=== PATIENT | female | born 1995 | race Caucasian/White ===

== ENCOUNTER 2022-01-08 13:16 | Outpatient (CLI) | payer OTHER, SELFPAY ==
--- OUTSIDE RECORDS SUMMARY | 2022-01-08 13:19 | XMS_ITS | Clinical Summary ---
:1995 Author Organization [employer] [facility] [place] [address] Care Team Providers Name Role Phone Jennifer Rangel Primary Care Provider [phone] Allergies Active Allergy Reactions Severity Noted Date Comments Amoxicillin Rash, Other - 01/31/2021 Asthma attack Describe In Comment Field House Dust Itching Low 03/30/2018 Grass Pollen Hives Low 03/30/2018 Prazosin Dizziness, Syncope 08/23/2019 Unlisted Allergen Hives 06/21/2019 John odonnell-pt (Include Detail In reports w hen she took Comments) the med she dev eloped a extreme cough ing episode and dev eloped hives Medications Medication Sig Dispensed Refills Start End Status Date Date polyethylene glycol Take 17 g by 10 Packet 0 Active (MIRALAX) 17 g mouth once 0 powder for daily. solutionIndications : Constipation, unspecified constipation type NebulizerIndication Nebulizer, 1 Device 0 Active s: Exacerbation of disposable neb 1 asthma, unspecified kit x 4, asthma severity, reuseable neb unspecified whether kit x 1, mask x persistent 1, filters x 1. Frequency of use: daily; Medication: albuterol Length of need: 99 months albuterol Inhale 3 mL (2.5 3 box 3 Act timur (PROVENTIL) 0.083 % mg) via a 1 neb nebulizer every solutionIndications 4 hours if : Exacerbation of needed. asthma, unspecified asthma severity, unspecified whether persistent Ventolin HFA 90 INHALE 2 PUFFS 1 Each 2 Active mcg/actuation BY MOUTH FOUR 1 inhalerIndications: TIMES A DAY Cough fluticasone Inhale 1 Puff by 60 Each 0 A ctive propion-salmeteroL mouth 2 times 1 (Advair Diskus) daily. 500-50 mcg/Dose diskus inhalerIndications: Severe persistent reactive airway disease with acute exacerbation ciprofloxacin-dexAM Place 4 Drops 7.5 mL 0 Active ETHasone (CIPRODEX) into both ears 2 2 otic times daily. suspensionIndicatio ns: Otitis externa of left ear, unspecified chronicity, unspecified type Fluocinolone PLACE 2 DROPS 0 Act timur Acetonide 0.01 % INTO AFFECTED 1 oil No EAR(S) TWO TIMES A DAY mometasone USE 2 SPRAYS IN 0 Act timur (NASONEX) (50 mcg BOTH NOSTRILS 2 each actuation) ONCE DAILY. nasal spray triamcinolone 0.5% Apply topically 60 g 0 Active (ARISTOCORT) 0.5 % to affected 2 creamIndications: area(s) 2 times Dermatitis daily. gabapentin TAKE 1 TABLET BY 0 Ac tive (NEURONTIN) 600 mg MOUTH AT 9PM 2 tablet cholecalciferol Take 1 Capsule 0 Active (VITAMIN D3) 2,000 (2,000 units) by 2 unit capsule mouth once daily. fluocinolone 0.01 % Place 5 Drops 20 mL 1 Active 0.01 % otic into both ears 2 2 solutionIndications times daily. : Otalgia of both ears, Chronic diffuse otitis externa of both ears, Chronic TMJ pain semaglutide Inject 2.4 mg 3 mL 5 Acti ve (Wegovy) 2.4 subcutaneous 2 mg/0.75 mL once weekly. penIndications: Obesity, Class II, BMI 35-39.9 fluticasone INHALE 1 PUFF BY 1 Each 5 A ctive propion-salmeteroL MOUTH TWO TIMES 2 (ADVAIR) 250-50 A DAY mcg/Dose diskus inhalerIndications: Cough tiZANidine Take 1 Tablet (4 30 Tablet 0 Ac tive (ZANAFLEX) 4 mg mg) by mouth 2 tabletIndications: every 6 hours if Tendinitis of left needed for shoulder, Muscle Spasm. Impingement syndrome of left shoulder amitriptyline Take 1 Tablet 90 Tablet 0 Ac tive (ELAVIL) 75 mg (75 mg) by mouth 2 tabletIndications: at bedtime. Depression, major, single episode, severe (HC), Insomnia, idiopathic, Other mixed anxiety disorders ARIPiprazole Take 2 Tablets 180 Tablet 0 A ctive (ABILIFY) 2 mg (4 mg) by mouth 2 tabletIndications: at bedtime. Depression, major, single episode, severe (HC), Other mixed anxiety disorders ondansetron (ZOFRAN Place 2 Tablets 30 Tablet 0 Active ODT) 4 mg (8 mg) on the 2 disintegrating tongue every 8 tabletIndications: hours if needed Enteritis for Nausea/Vomiting. dicyclomine Take 1 Capsule 30 Capsule 0 Ac tive (BENTYL) 10 mg (10 mg) by mouth 2 capsuleIndications: every 6 hours if Enteritis needed (abdominal cramping.). gabapentin Take 1 pill by 90 Capsule 0 Act timur (NEURONTIN) 300 mg mouth at 5PM and 2 capsuleIndications: 2 pills by mouth Restless legs at 9PM syndrome (RLS) promethazine Take 1 Tablet 20 Tablet 0 Act timur (PHENERGAN) 25 mg (25 mg) by mouth 2 tabletIndications: every 6 hours if Abdominal pain of needed for unknown etiology Nausea/Vomiting. promethazine Take 1 Tablet 2 Tablet 0 Act timur (PHENERGAN) 25 mg (25 mg) by mouth 2 tabletIndications: every 6 hours if Abdominal pain of needed for unknown etiology, Nausea/Vomiting Cysts of both for up to 2 ovaries doses. traMADoL (ULTRAM) Take 1 Tablet 15 Tablet 0 Active 50 mg (50 mg) by mouth 2 tabletIndications: every 6 hours if Abdominal pain of needed for Pain. unknown etiology, Cysts of both ovaries montelukast Take 1 Tablet 90 Tablet 3 Acti ve (SINGULAIR) 10 mg (10 mg) by mouth 2 tabletIndications: once daily. Allergic rhinitis, unspecified seasonality, unspecified trigger dupilumab (Dupixent Inject 200 mg 2.28 mL 0 Active Pen) 200 mg/1.14 mL subcutaneous 2 pnijIndications: every 2 weeks. Asthma, unspecified asthma severity, unspecified whether complicated, unspecified whether persistent, Chronic rhinosinusitis budesonide-formoter Inhale 2 Puffs 10.2 g 11 12/26 Discontinued oL (Symbicort) by mouth 2 times 2 022 (*Patient 160-4.5 daily. states no mcg/actuation longer (160-4.5 mcg each ta margarita/Not on actuation) sending inhalerIndications: facility list) Asthma, unspecified asthma severity, unspecified whether complicated, unspecified whether persistent dupilumab (Dupixent Inject 200 mg 2.28 mL 5 Discontinued Pen) 200 mg/1.14 mL subcutaneous 2 022 (Reorder pnijIndications: every 2 weeks. (E-cancel not Asthma, unspecified sent)) asthma severity, unspecified whether complicated, unspecified whether persistent, Chronic rhinosinusitis ondansetron (ZOFRAN PLACE 1 TABLET 20 Tablet 0 12/26 Discontinued ODT) 4 mg (4 MG) ON THE 2 022 (Dupli ana disintegrating TONGUE EVERY 8 therapy tabletIndications: HOURS IF NEEDED (E-cancel not Nausea FOR sent)) NAUSEA/VOMITING. metoclopramide HCl Take 1 Tablet 30 Tablet 0 Discontinued (REGLAN) 10 mg (10 mg) by mouth 2 022 (*Med tabletIndications: every 6 hours if complete/Regime Enteritis needed for n Nausea/Vomiting. com plete/Level of care ch cyndy) montelukast Take 1 Tablet 30 Tablet 0 Disc ontinued (SINGULAIR) 10 mg (10 mg) by mouth 2 022 (Reorder tabletIndications: once daily. (E-cancel not Allergic rhinitis, s ent)) unspecified seasonality, unspecified trigger rx tramadol Take 1 Tablet 4 Tablet 0 Disc ontinued (ULTRAM) 50 mg (50 mg) by mouth 2 022 (Duplicate tablet (ED DC every 6 hours if therapy MED)Indications: needed for Pain. (E-cancel not Abdominal pain of se nt)) unknown etiology, Cysts of both ovaries Hospital, Clinic, or Other Ordered Dose Route Frequency Start Date End Date Status Facility Administered Medication etonogestrel subdermal 1 Each Sdrm Q 3 YEARS 02/23/2021 Active implant (NEXPLANON) 1 EachIndications: Nexplanon insertion Active Problems Problem Noted Date Pap smear for cervical cancer screening 07/13/2021 Overview: 07/2021 NIL. Plan: Pap/HPV due 07/2024 Reactive airway disease with acute exacerbation 2021 Nightmares associated with chronic post-traumatic stre ss disorder 11/03/2018 Posttraumatic stress disorder 11/03/2018 Major depressive disorder, recurrent, moderate 018 Dysmenorrhea 01/21/2012 Irregular periods 01/21/2012 Attention deficit disorder without mention of hyperact ivity 05/09/2006 Resolved Problems Problem Noted Date Resolved Date Depression, major, single episode, severe 04/18/2021 04/19/2021 KIRK (generalized anxiety disorder) 03/30/201804/16 Pain in joint, lower leg 12/19/2006 01/21/2012 Encounters Date Type Specialty Care Team Description 12/26/2021 Office Visit Jennifer Rangel ER Follow u p (Post Er visit / RAJENDRA Wilburn ovary cysts) 12/26/2021 Travel 12/20/2021 Emergency Torgersen, Beba Abdomina l pain of unknown etiology (Primary Dx); Falguni, HOTEL CUSTODIAN Cysts of both o varies 12/20/2021 Travel 12/20/2021 Nurse Triage Jennifer Rangel Abdominal P RAJENDRA Segovia 12/20/2021 Telephone Jennifer Rangel Questions ( continuing pain RAJENDRA Wilburn from gastroenet eritis) 12/19/2021 Telephone Joseph Toledo DME Sup ply ([facility] singletary) 12/18/2021 Telephone Mandeep Rand DO Prior Authorization (dupilumab (Dup ixent Pen) 200 mg/1.14 mL pnij APPROVED 11/19/2021-03/0 09/2022) 12/18/2021 Telephone Tre, Joseph Elis French MD 12/13/2021 Office Visit Joseph Toledo, Musculo skeletal Problem (Consult left f oot pain, discuss Tenex p rocedure, per Dr. Mckee) 12/13/2021 Travel 12/04/2021 Refill Darien Rivas MD Refill Reque st (Gabapentin 300 mg, Gabapen tin 600mg, Montelukast sod 10mg) 12/04/2021 Refill Jennifer Rangel Refill Requ est (Trazodone) RAJENDRA Wilburn 12/03/2021 Emergency RanDustin MD Enteritis (Primary Dx) 12/03/2021 Travel 12/03/2021 Nurse Triage Jennifer Rangel Abdominal P ain (Severe with RAJENDRA Wilburn nausea and diar enrique) 11/23/2021 Refill Jennifer Rangel Refill Requ est (Ondansetron) RAJENDRA Wilburn 11/23/2021 Telephone Caro Lomax Prior Auth orization MD Akila (ARIPiprazole ( ABILIFY) 2 mg tablet APPROVED 10/24/21-12/23/21 ) 11/21/2021 Office Visit Kye Mckee, Follow Up (Left heel pain) DPM 11/21/2021 Telemedicine Caro Lomax Telehealth ; Follow Up MD Akila 11/21/2021 Travel 11/13/2021 Telephone Kye Mckee Questio ns (next steps); DPM Return Call ([facility] Ext [phone]) 11/13/2021 Telephone Jennifer Rangel Error-pleas e RAJENDRA Knight 11/09/2021 Office Visit Jennifer Rangel Shoulder Rajendra in/problem (RAJENDRA Davila shoulder pain x 1 week, no known injury, t hinks she must have moved wron g) 11/09/2021 Travel 10/22/2021 Office Visit Mandeep Rand, DO Follow Up (asthma ) 10/22/2021 Office Visit Ericka Lin Back Pain RAJENDRA Augustine 10/22/2021 Travel 10/19/2021 Telephone Jennifer Rangel Prior Autho rization RAJENDRA Wilburn (semaglutide (W egovy) 2.4 mg/0.75 mL pen( APPROVED through 022) 10/10/2021 Office Visit Caro Lomax Medication Management; Follow MD Akila Up 10/10/2021 Travel 10/08/2021 Refill Jennifer Rangel Refill Requ est (Lorazepam) RAJENDRA Wilburn from Last 3 Months Immunizations Name Administration Dates Next Due COVID-19 vaccine ([employer] 06/16/2020 30mcg/0.3mL) PF, MDV DTP 03/16/1996, 09/12/1995, 1994, 1994 DTaP 11/12/1999 HIB PRP-OMP (PedvaxHIB) 03/16/1996, 09/12/1995, 1994, 1994 Hepatitis A (Peds) 01/15/2011, 12/05/2006 06/07/2007 Hepatitis B (Peds) 02/24/1995, 1994, 1994 Human Papilloma Virus Vaccine 02/24/2013, 01/21/2012, 2010 Inactivated Polio Vaccine 11/12/1999 Influenza Virus, Unspecified 01/17/2020, 01/04/2020, 018 Influenza, IIV3 (Age >=3 years) 02/19/2017, 02/24/2013 Influenza, IIV4 12/19/2020, 12/28/2019 Influenza,LAIV4 Live Intranasal 01/21/2012, 01/15/2011 (Flumist) MMR 11/12/1999, 09/12/1995 Meningococcal Vaccine (Menactra) 12/05/2006 Meningococcal Vaccine (Menveo) 02/24/2013, 01/21/2012 Oral Polio Vaccine 09/12/1995, 1994, 1994 Pneumococcal Poly,23-Valent 01/31/2021 (Pneumovax) Td, Preservative Free (age >= 7 05/21/2017 Years) Tdap 12/05/2006 Family History Medical History Relation Name Comments Diabetes Father Hyperlipidemia Maternal Grandfather Hypertension Maternal Grandfather Cancer-breast Maternal Grandmother Hyperlipidemia Maternal Grandmother Hypertension Maternal Grandmother Asthma Mother Diabetes Other maternal great u ncle Diabetes Paternal Grandfather Heart Disease No Family History Relation Name Status Comments Father Maternal Grandfather Maternal Grandmother Mother Other Paternal Grandfather Social History Tobacco Use Types Packs/Day Years Used Date Never Smoker Smokeless Tobacco: Never Used Tobacco Cessation: Counseling Given: Yes Alcohol Use Standard Drinks/Week Comments Not Currently 0 (1 standard drink = 0.6 oz pure alcoho l) Alcohol Habits Answer Date Recorded How often do you have a drink containing alcohol? Monthly or less 07/30/2018 How many drinks containing alcohol do you have on a Not aske d typical day when you are drinking? How often do you have six or more drinks on one Not asked occasion? Comment: Not asked Sex Assigned at Date Recorded Not on file COVID-19 Exposure Response Date Recorded In the last 10 days, have you been in contact with No / Unsu re 12/26/2021 7:36 AM CDT someone who was confirmed or suspected to have Coronavirus/COVID-19? Obstetrics History Para Term AB IAB SAB Ectopic Multiple Living Live Births 0 0 0 0 0 0 0 0 0 0 0 Last Filed Vital Signs Vital Sign Reading Time Taken Comments Blood Pressure 94/66 12/26/2021 7:42 AM CDT Pulse 82 12/26/2021 7:42 AM CDT Temperature 36.7 ??C (98.1 ??F) 12/20/2021 6:33 PM CDT Respiratory Rate 17 12/20/2021 6:33 PM CDT Oxygen Saturation 99% 12/20/2021 6:33 PM CDT Inhaled Oxygen Concentration - - Weight 98.9 kg (218 lb) 12/26/2021 7:42 AM CDT Height 160 cm (5' 3) 12/26/2021 7:42 AM CDT Body Mass Index 38.62 12/26/2021 7:42 AM CDT Plan of Treatment Upcoming Encounters Date Type Specialty Care Team Description 01/08/2022 Procedure Only Joseph Toledo MD Arrived [address] [phone] (Wo rk) Health Maintenance Due Date Last Done Comments Hepatitis C screening for age 0408/02/2012 18-79 Influenza for age 9-49 12/13/2021 12/19/2020, 01/17/2020, 01/04/2020, Additional history exists Pneumococcal series for age 19-64 01/31/2022 01/31/2021 (2 - PCV) Depression screening for age 12+ 11/23/2022 11/23/2021, 01/2022, 11/21/2021, Additional history exists BMI (ht and wt on same day) for 12/26/2022 12/26/2021, 10/12, age 18+ 09/26/2021, Additional history exists Pap test for age 21-65 07/25/2024 07/25/2021 Tetanus booster 05/21/2027 05/21/2017, 12/05/2006 Tdap Completed 12/05/2006 COVID-19 vaccine series Completed 01/03/2022, 01/16/2021, 07/07/2020, Additional history exists Procedures Procedure Name Priority Date/Time Associated Diagnosis Comme nts US PELVIS COMPLETE TA STAT 12/20/2021 8:53 Res ults for this AND TV PM CDT procedure are i n the results section. URINE CULTURE JH 12/20/2021 8:43 Results for this PM CDT procedure are i n the results section. URINALYSIS STAT 12/20/2021 8:43 Results for this MICROSCOPIC PM CDT procedure are i n the results section. UA W/ SEDIMENT EXAM STAT 12/20/2021 8:43 Resul ts for this REFLEXED PER CRITERIA PM CDT proced ure are in the results section. CBC WITH AUTO STAT 12/20/2021 6:49 Results for this DIFFERENTIAL PM CDT procedure are i n the results section. ,SERUM STAT 12/20/2021 6:49 Results f or this PM CDT procedure are i n the results section. C-REACTIVE PROTEIN STAT 12/20/2021 6:49 Result s for this PM CDT procedure are i n the results section. COMP METABOLIC PANEL STAT 12/20/2021 6:49 Resu lts for this PM CDT procedure are i n the results section. CBC WITH AUTO STAT 12/20/2021 6:49 Results for this DIFFERENTIAL PM CDT procedure are i n the results section. CT ABDOMEN PELVIS W STAT 12/03/2021 11:32 Resu lts for this AM CDT procedure are i n the results section. URINE STAT 12/03/2021 10:50 Results for this AM CDT procedure are i n the results section. CBC WITH AUTO STAT 12/03/2021 10:26 Results fo r this DIFFERENTIAL AM CDT procedure are i n the results section. LIPASE STAT 12/03/2021 10:26 Results for this AM CDT procedure are i n the results section. COMP METABOLIC PANEL STAT 12/03/2021 10:26 Res ults for this AM CDT procedure are i n the results section. CBC WITH AUTO STAT 12/03/2021 10:26 Results fo r this DIFFERENTIAL AM CDT procedure are i n the results section. WA SPMTRY W/VC Routine 10/22/2021 12:00 Vocal cord EXPIRATORY BARBARA W/WO AM CDT dysfunction MXML VOL VNTJ WA NITRIC OXIDE Routine 10/22/2021 12:00 Vocal cord GAS AM CDT dysfunction DETERMINATION LIPID PANEL W REFLEX Routine 10/10/2021 8:23 [facility] current use Results for this MEASURED LDL AM CDT of antipsychotic procedure a re in medication the results Panic disorder with section. agoraphobia from Last 3 Months Results US PELVIS COMPLETE TA AND TV (12/20/2021 8:53 PM CDT) Anatomical Region Laterality Modality Pelvis Ultrasound Specimen (Source) Anatomical Collection Method Collection Time Re ceived Time Location / / Volume Laterality 12/20/2021 9:22 PM CDT Impressions 12/20/2021 9:22 PM CDT 1. No ovarian torsion or mass. 2.5 cm dominant follicle versus cyst within the left ovary. 2. Normal endometrial stripe thickness o f 5 mm. 3. Trace pelvic free fluid, likely physi ologic. Dictated by Tod Barlow MD @ 12/21/19 9:22:21 PM (Electronically Signed) Narrative 12/20/2021 9:22 PM CDT For Patients: ??As a result of the 21st Century Cures Act, medical imaging exams and procedure report s are released immediately into your [facility] medical record. ??You may view this report before your referring provider. ??If you have questions, please contact your health care provider. HISTORY: Abdominal pain. TECHNIQUE: Transabdominal and transvaginal pelvic u ltrasound. COMPARISON: CT 12/03/2021. Ultrasound 04/13/2020. FINDINGS: Uterus measures 6.8 x 4.4 x 2.9 cm in si ze. Endometrial stripe thickness is 5 mm which is within normal limits. There appears to be a calcification along the right aspect of the uterus of questionable significance as an isolated finding. - Right ovary measures 3.6 x 2.6 x 1.2 cm in size. There are small follicles within the right ovary and also a probable single calcification within the right ovary. Blood flow is detected within the right ovary without findings of torsion. - Left ovary measures 3.5 x 3.5 x 2.7 cm i n size. There are small follicles within the left ovary. 2.5 cm dominant follicle versus cyst within the left ovary. Blood flow detected within the left ovary without findings of torsion. - Trace amount of pelvic free fluid. Procedure Note Tod Barlow MD - 2 For Patients: As a result of the ntury Cures Act, medical imaging exams and procedure reports are released immediately into your electronic medical record. You may view this report before your referring provider. If you have questions, please contact [facility]. HISTORY: Abdominal pain. TECHNIQUE: Transabdominal and transvaginal pelvic u ltrasound. COMPARISON: CT 12/03/2021. Ultrasound 04/13/2020. FINDINGS: Uterus measures 6.8 x 4.4 x 2.9 cm in si ze. Endometrial stripe thickness is 5 mm which is within normal limits. There appears to be a calcification along the right aspect of the uterus of questionable significance as an isolated finding. - Right ovary measures 3.6 x 2.6 x 1.2 cm in size. There are small follicles within the right ovary and also a probable single calcification within the right ovary. Blood flow is detected within the right ovary without findings of torsion. - Left ovary measures 3.5 x 3.5 x 2.7 cm i n size. There are small follicles within the left ovary. 2.5 cm dominant follicle versus cyst within the left ovary. Blood flow detected within the left ovary without findings of torsion. - Trace amount of pelvic free fluid. IMPRESSION: 1. No ovarian torsion or mass. 2.5 cm do minant follicle versus cyst within the left ovary. 2. Normal endometrial stripe thickness o f 5 mm. 3. Trace pelvic free fluid, likely physi ologic. Dictated by Tod Barlow MD @ 12/21/19 9:22:21 PM (Electronically Signed) Beba Carrillo NP US (ABNORMAL) URINALYSIS MICROSCOPIC (12/20/2021 8:43 PM CDT) [facility] Method Time Signature RBC 0-2 0-2, None 12/20/2021 [place] Seen /HPF 8:55 PM CDT [facility] WBC 6-10 (A) 0-2, 3-5, 12/20/2021 [place] None Seen 8:55 PM CDT [facility] /HPF LABORATORY BACTERIA Moderate (A) None 12/20/2021 [place] Seen, 8:55 PM CDT [facility] Rare, Few LABORATORY Bacteria/ HPF EPITHELIAL Many (A) None 12/20/2021 [place] CELLS Seen, Few 8:55 PM CDT [facility]ENTER Epi/HPF LABORATORY Specimen Anatomical Collection Method Collection Time Receive d Time (Source) Location / / Volume Laterality Urine URINE SPECIMEN / Non-Blood / 12/20/2021 8:43 PM 12/20 8:47 Unknown Unknown CDT PM CDT Beba Carrillo NP URINE Performing Organization Address City/State/ZIP Code Phon e Number [facility] [address] [place] [address] URINE CULTURE (12/20/2021 8:43 PM CDT) [facility] Method Time Signature CULTURE <10,000 CFU/mL 12/21/2021 [employer] multiple 7:45 PM CDT LABORATORY-[facility] LABORATORY Specimen Anatomical Collection Method Collection Time Receive d Time (Source) Location / / Volume Laterality Urine URINE SPECIMEN / Non-Blood / 12/20/2021 8:43 PM 12/20 8:47 Unknown Unknown CDT PM CDT Beba Carrillo NP MICROBIOLOGY Performing Organization Address City/State/ZIP Code Phon e Number [employer] [address] [place] [address] LABORATORY-CENTRAL 2000 LABORATORY (ABNORMAL) UA W/ SEDIMENT EXAM REFLEXED PER CRITERIA (12/20/2021 8:43 PM CDT) [facility] Method Time Signature COLOR Yellow Yellow Color 12/20/2021 [place] 8:56 PM [facility] LABORATORY CLARITY Clear Clear 12/20/2021 [facility] Clarity 8:56 PM [facility] LABORATORY SPECIFIC <=1.005 (A) 1.010, 12/20/2021 [facility] GRAVITY,URINE 1.015, 8:56 PM T MEDICAL 1.020, 1.025 CENTER LABORATORY PH,URINE 6.5 6.0, 7.0, 12/20/2021 [place] 8.0, 5.5, 8:56 PM [facility] MEDICAL 6.5, 7.5, CENTER 8.5 LABORATORY UROBILINOGEN, Normal Normal EU/dl 12/20/2021 [facility] 8:56 PM [facility] LABORATORY PROTEIN, Negative Negative 12/20/2021 [facility] UR[facility] mg/dL 8:56 PM [facility] LABORATORY GLUCOSE, Negative Negative 12/20/2021 [place] URINE mg/dL 8:56 PM [facility] LABORATORY KETONES,URINE Trace (A) Negative 12/20/2021 [facility] mg/dL 8:56 PM [facility] LABORATORY BILIRUBIN,URI Negative Negative 12/20/2021 [facility] 8:56 PM [facility] LABORATORY OCCULT Negative Negative 12/20/2021 [facility] BLOOD,URINE 8:56 PM [facility] LABORATORY NITRITE Negative Negative [facility]/20[facility] LABORATORY LEUKOCYTE Trace (A) Negative 12/20/2021 [place] ESTERASE 8:56 PM [facility] LABORATORY Specimen Anatomical Collection Method Collection Time Receive d Time (Source) Location / / Volume Laterality Urine URINE SPECIMEN / Non-Blood / 12/20/2021 8:43 PM 12/20 8:47 Unknown Unknown CDT PM CDT Beba Carrillo NP URINE Performing Organization Address City/State/ZIP Code Phon e Number [facility] [address] [facility] [place] [address] CBC WITH AUTO DIFFERENTIAL (12/20/2021 6:49 PM CDT)Only the most recent of2 resultswithin the time period is included. P athologist Signature WHITE BLOOD 8.5 4.5 - 11.0 12/20/2021 [place] COUNT thou/cu mm 6:56 PM [facility] RED BLOOD COUNT 4.48 4.00 - 12/20/2021 [place] 5.20 6:56 PM [facility] mil/cu mm LABORATORY HEMOGLOBIN 14.5 12.0 - 12/20/2021 [place] 16.0 g/dL 6:56 PM [facility] HEMATOCRIT 43.7 33.0 - 12/20/2021 [place] 51.0 % 6:56 PM [facility] MCV 98 80 - 100 12/20/2021 [place] fL 6:56 PM [facility] MCH 32.4 26.0 - 12/20/2021 [place] 34.0 pg 6:56 PM [facility] MCHC 33.2 32.0 - 12/20/2021 [place] 36.0 g/dL 6:56 PM [facility] RDW 11.6 11.5 - 12/20/2021 [place] 15.5 % 6:56 PM [facility] PLATELET COUNT 346 140 - 440 12/20/2021 [place] thou/cu mm 6:56 PM [facility] MPV 9.4 6.5 - 11.0 12/20/2021 [place] fL 6:56 PM [facility] % NEUT 76.4 % 12/20/2021 [place] 6:56 PM [facility] [facility] % LYMPH 12.3 % 12/20/2021 [place] 6:56 PM [facility] % MONO 7.9 % 12/20/2021 [place] 6:56 PM [facility] % EOS 3.0 % 12/20/2021 [place] 6:56 PM [facility] % BASO 0.4 % 12/20/2021 [place] 6:56 PM [facility] ABSOLUTE 6.5 1.7 - 7.0 12/20/2021 [place] NEUTROPHILS thou/cu mm 6:56 PM [facility] ABSOLUTE 1.0 0.9 - 2.9 12/20/2021 [place] LYMPHOCYTES thou/cu mm 6:56 PM [facility] ABSOLUTE 0.7 <0.9 12/20/2021 [place] MONOCYTES thou/cu mm 6:56 PM [facility] ABSOLUTE 0.3 <0.5 12/20/2021 [place] EOSINOPHILS thou/cu mm 6:56 PM T [facility] ABSOLUTE 0.0 <0.3 12/20/2021 [place] BASOPHILS thou/cu mm 6:56 PM [facility] Specimen Anatomical Collection Method / Collection Time Recei marco Time (Source) Location / Volume Laterality Blood BLOOD SPECIMEN / Venipuncture / 12/20/2021 6:49 2021 6:54 Unknown Unknown PM CDT PM CDT Beba Carrillo NP HEMATOLOGY Performing Organization Address City/[facility]/ZIP [facility] [place] Phon e Number [facility] [address] [place] [address] ,SERUM (12/20/2021 6:49 PM CDT) Analysis Performed At [facility] ,SERU Negative Negative [facility] Specimen Anatomical Collection Method / Collection Time Recei marco Time (Source) Location / Volume Laterality Blood BLOOD SPECIMEN / Venipuncture / 12/20/2021 6:49 2021 6:54 Unknown Unknown PM CDT PM CDT Beba Carrillo NP CHEMISTRY Performing Organization Address City/[facility]/ZIP Code Phon e Number [facility] [address] [place] [address] (ABNORMAL) C-REACTIVE PROTEIN (12/20/2021 6:49 PM CDT) Analysis Performed At [facility] C-REACTIVE 0.79 (H) <0.50 12/20/2021 [place] PROTEIN mg/dL 7:13 PM [facility] Specimen Anatomical Collection Method / Collection Time Recei marco Time (Source) Location / Volume Laterality Blood BLOOD SPECIMEN / Venipuncture / 12/20/2021 6:49 2021 6:54 Unknown Unknown PM CDT PM CDT Beba Montes De Oca Lorena HOTEL CUSTODIAN CHEMISTRY Performing Organization Address City/State/ZIP Code Phon e Number [facility] [address] [place] [address] COMP METABOLIC PANEL (12/20/2021 6:49 PM CDT)Only the most recent of2 results within the time period is included. P athologist Signature SODIUM 140 135 - 145 12/20/2021 [place] mmol/L 7:16 PM [facility] POTASSIUM 3.7 3.5 - 5.0 12/20/2021 [place] mmol/L 7:16 PM [facility] CHLORIDE 106 98 - 110 12/20/2021 [place] mmol/L 7:16 PM [facility] CO2,TOTAL 23 21 - 31 12/20/2021 [place] mmol/L 7:16 PM [facility] ANION GAP 11 5 - 18 12/20/2021 [place] 7:16 PM [facility] GLUCOSE 90 65 - 100 12/20/2021 [place] mg/dL 7:16 PM [facility] CALCIUM 9.7 8.5 - 10.5 12/20/2021 [place] mg/dL 7:16 PM [facility] BUN 10 8 - 25 12/20/2021 [place] mg/dL 7:16 PM [facility] CREATININE 0.82 0.57 - 12/20/2021 [place] 1.11 mg/dL 7:16 PM [facility] BUN/CREAT RATIO 12 10 - 20 12/20/2021 [place] 7:16 PM [facility] ALBUMIN 4.5 3.5 - 5.2 12/20/2021 [place] g/dL 7:16 PM [facility] PROTEIN,TOTAL 7.0 6.0 - 8.0 12/20/2021 [place] g/dL 7:16 PM [facility] GLOBULIN 2.5 2.0 - 3.7 12/20/2021 [place] g/dL 7:16 PM [facility] A/G RATIO 1.8 1.0 - 2.0 12/20/2021 [place] 7:16 PM [facility] BILIRUBIN,TOTAL 0.5 0.2 - 1.2 12/20/2021 [place] mg/dL 7:16 PM [facility] ALK PHOSPHATASE 107 50 - 136 12/20/2021 [place] IU/L 7:16 PM [facility] ALT (SGPT) 34 8 - 45 12/20/2021 [place] IU/L 7:16 PM [facility] AST (SGOT) 23 2 - 40 12/20/2021 [place] IU/L 7:16 PM [facility] eGFR >90 >90 12/20/2021 [facility] mL/min/1.7 7:16 PM [facility] 3m2 LABORATORY Comment: As of 2021, eGFR is calcu lated by the CKD-EPI creatinine equation without race adjustment. eGFR can be inf luenced by muscle mass, exercise, and diet. The reported eGFR is an estimation only and is only applicable if the renal function is stable. Specimen Anatomical Collection Method / Collection Time Recei marco Time (Source) Location / Volume Laterality Blood BLOOD SPECIMEN / Venipuncture / 12/20/2021 6:49 2021 6:54 Unknown Unknown PM CDT PM CDT Beba Carrillo NP CHEMISTRY Performing Organization Address City/State/ZIP Code Phon e Number [facility] [address] [place] [address] CT ABDOMEN PELVIS W (12/03/2021 11:32 AM CDT) Anatomical Region Laterality Modality Abdomen, Pelvis, AORTA, LIVER, SPLEEN Co mputed Tomography Specimen (Source) Anatomical Collection Method Collection Time Re ceived Time Location / / Volume Laterality 12/03/2021 12:28 PM CDT Impressions 12/03/2021 12:28 PM CDT Findings likely related to mild diffuse enteritis. Please note that all CT scans at this [facility] use dose modulation, iterative reconstruction, and/or weight-based dosing when appropriate to reduce radiation dose to as low as reasonably achievable. Dictated by Ede Foster MD @ 12:28:00 PM (Electronically Signed) Narrative 12/03/2021 12:28 PM CDT For Patients: ??As a result of the Cures Act, medical imaging exams and procedure report s are released immediately into your [facility] medical record. ??You may view this report before your referring provider. ??If you have questions, please contact your health care provider. INDICATION: Lower abdominal pain. Nausea, vomiting a nd diarrhea episodes for 3 weeks. COMPARISON: April 13, 2020 TECHNIQUE: CT examination of the abdomen and pelvis was performed following the uneventful intravenous administration of 100 cc of Omnipaque 350. Thin section axial images were obtained from the lung bases through the pubic symphysis. ??Oral contrast wa s not administered. ?? Please note that all CT scans at this [facility] use dose modulation, iterative reconstruction, and/or weight-based dosing when appropriate to reduce radiation dose to as low as reasonably achievable. FINDINGS: LUNG BASES: Left basilar atelectasis or scarring.The heart size is normal at the lung bases. LIVER/BILIARY SYSTEM:The liver is normal in size and configuration. There is no focal mass and there is no intra- or extra hepatic biliary ductal dilatation.Hepatic steatosis. The gallbladder appears normal. ADRENALS: Normal KIDNEYS, URETERS and BLADDER:The kidneys appear normal. No visible mass, calculus or hydronephrosis. The ureters and bladder as visualized appear normal. SPLEEN:Normal appearance. PANCREAS: Appears normal. RETROPERITONEUM and MESENTERY: There is no mass, adenopathy or aortic aneurysm. GASTROINTESTINAL SYSTEM: The colon is mo derately distended with fluid. There is no wall thickening, pneumatosis or surrounding inflammatory process. No evidence of mechanical obstruction. Mild fluid pro minence of small bowel as well. No evide nce of appendicitis or diverticulitis. These findings are likely related to a mild diffuse enteritis. PELVIS: No mass, adenopathy or free flui d. OSSEOUS STRUCTURES and ABDOMINAL WALL: T here is an age-appropriate appearance of the osseous structures.No significant abdominal wall defect. OTHER: No free fluid or free air. Procedure Note Ede Foster MD - 12/03/2021Format ting of this note might be different from the original. For Patients: As a result of the Cures Act, medical imaging exams and procedure reports are released immediately into your electronic medical record. You may view this report before your referring provider. If you have questions, please contact yo health care provider. INDICATION: Lower abdominal pain. Nausea, vomiting a nd diarrhea episodes for 3 weeks. COMPARISON: April 13, 2020 TECHNIQUE: CT examination of the abdomen and pelvis was performed following the uneventful intravenous administration of 100 cc of Omnipaque 350. Thin section axial images were obtained from the lung bases through the pubic symphysis. Oral contrast was not adminis tered. Please note that all CT scans at this [facility] use dose modulation, iterative reconstruction, and/or weight-based dosing when appropriate to reduce radiation dose to as low as reasonably achievable. FINDINGS: LUNG BASES: Left basilar atelectasis or scarring.The heart size is normal at the lung bases. LIVER/BILIARY SYSTEM:The liver is normal in size and configuration. There is no focal mass and there is no intra- or extra hepatic biliary ductal dilatation.Hepatic steatosis. The gallbladder appears normal. ADRENALS: Normal KIDNEYS, URETERS and BLADDER:The kidneys appear normal. No visible mass, calculus or hydronephrosis. The ureters and bladder as visualized appear normal. SPLEEN:Normal appearance. PANCREAS: Appears normal. RETROPERITONEUM and MESENTERY: There is no mass, adenopathy or aortic aneurysm. GASTROINTESTINAL SYSTEM: The colon is mo derately distended with fluid. There is no wall thickening, pneumatosis or surrounding inflammatory process. No evidence of mechanical obstruction. Mild fluid prominence of small bowel as well. No evidence of appe ndicitis or diverticulitis. These findings are likely related to a mild diffuse enteritis. PELVIS: No mass, adenopathy or free flui d. OSSEOUS STRUCTURES and ABDOMINAL WALL: T here is an age-appropriate appearance of the osseous structures.No significant abdominal wall defect. OTHER: No free fluid or free air. IMPRESSION: Findings likely related to mild diffuse enteritis. Please note that all CT scans at this [facility] use dose modulation, iterative reconstruction, and/or weight-based dosing when appropriate to reduce radiation dose to as low as reasonably achievable. Dictated by Ede Foster MD @ 12:28:00 PM (Electronically Signed) Dustin Shaffer MD CT URINE (12/03/2021 10:50 AM T) Analysis Performed At Patho logist Time Signature ,URIN Negative Negative 12/03/2021 [place] E 10:59 AM CDT [facility] Specimen Anatomical Collection Method Collection Time Receive d Time (Source) Location / / Volume Laterality Urine URINE SPECIMEN / Non-Blood / 12/03/2021 10:50 022 Unknown Unknown AM CDT 10:52 AM CDT Dustin Shaffer MD URINE Performing Organization Address City/[facility]/ZIP Code Phon e Number [facility] [address] [place] [address] LIPASE (12/03/2021 10:26 AM CDT) P athologist Signature LIPASE 23.3 8.0 - 78.0 12/03/2021 [facility] IU/L 12:39 PM CDT [facility] Specimen Anatomical Collection Method / Collection Time Recei marco Time (Source) Location / Volume Laterality Blood BLOOD SPECIMEN / Venipuncture / 12/03/2021 10:26 12/03 Unknown Unknown AM CDT 10:29 AM CDT Dustin Shaffer MD CHEMISTRY Performing Organization Address City/[facility]/ZIP Code Phon e Number [facility] [address] [place] [address] [place] NITRIC OXIDE GAS DETERMINATION (10/22/2021 12:00 AM CDT) Narrative This result has an attachment that is no t available. Mandeep Rand DO [facility] - ALLERGY AND IMMUNOLOGY SERVICES [place] SPIROMETRY W VITAL CAPACITY (10/22/2021 12:00 AM CDT) Narrative This result has an attachment that is no t available. Mandeep Rand DO [facility] - RESPIRATORY SYSTEM SERV ICES LIPID PANEL W REFLEX MEASURED LDL (10/10/2021 8:23 AM CDT) Patholo gist Method Time Signature CHOLESTEROL,TOTAL 143 100 - 199 10/10/2021 [facility] mg/dL 5:45 PM CDT [facility] TRIGLYCERIDES 53 <150 10/10/2021 [facility] mg/dL 5:45 PM CDT [facility] HDL CHOLESTEROL 46 >40 mg/dL 10/10/2021 [facility] 5:45 PM CDT [facility] NON-HDL 97 <145 10/10/2021 [facility] CHOLESTEROL mg/dl 5:45 PM CDT [facility] CHOL/HDL RATIO 3.11 <4.50 10/10/2021 [facility] 5:45 PM CDT [facility] LDL CHOLESTEROL 86 <=130 10/10/2021 [facility] mg/dL 5:45 PM CDT [facility] VLDL CHOLESTEROL 11 <=30 10/10/2021 [facility] mg/dL 5:45 PM CDT [facility] PROVIDER ORDERED RANDOM 10/10/2021 [facility] STATUS 5:45 PM CDT [facility] Specimen Anatomical Collection Method / Collection Time Recei marco Time (Source) Location / Volume Laterality Blood BLOOD SPECIMEN / Venipuncture / 10/10/2021 8:23 2021 8:33 Unknown Unknown AM CDT AM CDT Caro Lomax MD CHEMISTRY Performing Organization Address City/State/ZIP Code Phon e Number [facility] [address] [place] [address] LABORATORY-[facility] 2000 LABORATORY from Last 3 Months Insurance Payer Benefit Plan / Subscriber ID Effective Dates Phone Addre ss Type Group MEDICA MEDICA CHOICE [id number] 2021-Present [address] [address] [place] [address] [facility] [employer] [id number] 2019-Present [address] [address] [place] [address] (Home) [place] [address] [employer] M Motor Vehicle Self [address] [place] [address] Christina Campa Workers Comp Self [address] (Home) [place] [address] Christina Campa [place] Motor Vehicle Self [address] (Home) [place] [address] [facility] [employer] [phone] [address] [address] [address] [facility] (Home) [place] [employer] [phone] [id number] (Work) Christina Campa Motor Vehicle Self 1995 [address] [place] [address] (Home) [place] [address] Care Teams Mail Order Biller Relationship Specialty Start Date End Date Jennifer Rangel PA PCP - General Family Practice 02/16/13 [address] [place] [address]
--- OUTSIDE RECORDS SUMMARY | 2022-01-08 13:19 | XMS_ITS ---
:1995 Author Care Team Providers Name Role Phone VANESSA DEWEY Primary Care Provider [phone] DR. INDERJIT LYNN Referring Provider [phone] Allergies Code Code System Name Reaction Severity Status Onset Penicillins Hives Moderate to Active 2015 Severe ? Respiratory Mild to Active ? Distress Moderate 83391 RxNorm Benzonatate Respiratory ? Active 2019 Distress Medications Name Status Start Date Stop Date ? ? Afluria Quad 2517-5574 (PF) 60 mcg (15 mcg x 4)/0.5 mL Completed ? 06/29/2020 IM syringe amitriptyline 25 mg tablet Active ? Not a vailable TAKE ONE TABLET BY MOUTH AT BEDTIME amoxicillin 875 mg tablet Completed ? 2020 betamethasone dipropionate 0.05 % lotion Completed ? 06/29/2020 NICKIE EXT AA BID bupropion HCl 75 mg tablet Active ? Not a vailable TAKE ONE TABLET BY MOUTH TWICE A DAY cefdinir 300 mg capsule Completed ? 06/30/19 21 cefuroxime axetil 500 mg tablet Completed ? 06/29/2020 TAKE ONE TABLET BY MOUTH TWICE A DAY FOR 10 DAYS cephalexin 500 mg capsule Completed ? 2020 TAKE ONE CAPSULE BY MOUTH TWICE A DAY FOR 10 DAYS ciprofloxacin 0.3 %-dexamethasone 0.1 % ear drops,suspension Act timur ? Not available PLACE 4 DROPS INTO AFFECTED EAR(S) FOUR TIMES A DAY cyclobenzaprine 10 mg tablet Completed ? TAKE ONE TABLET BY MOUTH TWICE A DAY NEEDED FOR MUSCLE SPASM S duloxetine 30 mg capsule,delayed release Active ? Not available TAKE ONE CAPSULE BY MOUTH EVERY DAY fluocinolone 0.01 % topical body oil Active ? Not available PLACE 2 DROPS INTO AFFECTED EAR(S) TWO TIMES A DAY fluoxetine 20 mg capsule Completed ? 021 fluoxetine 40 mg capsule Completed ? 021 gabapentin 100 mg capsule Active ? Not av ailable TAKE TWO CAPSULES BY MOUTH THREE TIMES A DAY hydroxyzine pamoate 25 mg capsule Active ? Not available TAKE ONE CAPSULE BY MOUTH THREE TIMES A DAY NEEDED FOR NAUSE A Francisco 1.5/30 (21) 1.5 mg-30 mcg tablet Active ? Not available Lutera (28) 0.1 mg-20 mcg tablet Completed ? 06/29/2020 methylphenidate ER 36 mg tablet,extended release 24 hr Completed ? 06/29/2020 nabumetone 500 mg tablet Completed ? 021 TAKE ONE TABLET BY MOUTH TWICE A DAY WITH FOOD [id number]-cmufijktg-krfbenbjx 3.5 mg-10,000 unit/mL-1 % Active ? Not available ear drops,susp paroxetine 20 mg tablet Completed ? 06/30/19 21 paroxetine 30 mg tablet Completed ? 06/30/19 21 polyethylene glycol 3350 17 gram/dose oral powder Active ? Not available MIX 17GM (ONE CAPFUL) WITH 6-8 OUNCES OF LIQUID AND TAKE BY BHUPENDRA TH ONCE DAILY prazosin 2 mg capsule Completed ? 06/29/2020 TK 2 CS PO HS quetiapine 25 mg tablet Completed ? 06/30/19 21 TAKE ONE TABLET BY MOUTH AT BEDTIME sertraline 100 mg tablet Completed ? 021 TAKE ONE AND ONE-HALF TABLETS ONCE DAILY IN THE MORNING sertraline 50 mg tablet Completed ? 06/30/19 21 TK 1 T PO QAM trazodone 100 mg tablet Completed ? 06/30/19 21 TK 1 TO 1 AND 1/2 TS PO HS PRF SKEIN SPOOLER trazodone 50 mg tablet Active ? Not avail able TAKE ONE-HALF TABLET BY MOUTH EVERY DAY NEEDED FOR ANXIETY Ventolin HFA 90 mcg/actuation aerosol inhaler Active ? Not available INHALE 2 PUFFS FOUR TIMES A DAY NEEDED Problems Name Status Onset Date Source ? Tension-type Headache Active 07/02/2020 ? Migraine Active 07/02/2020 ? Myofascial Pain Active 07/02/2020 ? Limited Opening of Mandible Active 07/02/2020 ? Otalgia Active 07/02/2020 ? Arthralgia of Temporomandibular Joint Active 07/02/2020 ? 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 Procedures Date Name Performed by ? ? ENT/Sinus Surgery Information not avai lable ? Tonsillectomy Information not avai lable Results Lab Results Date Name Specimen Result Interpretation Description Value Range Status Address ? ? Oral Appliance ? Type of maxillary ? ? [place]: [address]* Appliance stabilization E Marcia Warren appliance Roque [address] [place] [address] Past Encounters 08/08/2020 Arthralgia of Temporomandibular Joint; B ilateral Temporomandibular Joint Articular Disc Disorder; Limited Opening of Mandible; Migraine; Myofascial Pain Dionisio Rivero, PT: [address], [address] [place] [phone], Ph. 08/08/2020 Bilateral Temporomandibular Joint Articu lar Disc Disorder; Otalgia; Myofascial Pain; Migraine; Tension-type Headache; Limited Opening of Mandible; Arthralgia of Temporomandibular Joint Jessica Pulido, DDS: [address], [address] [place] [phone], Ph. 07/26/2020 Arthralgia of Temporomandibular Joint; B ilateral Temporomandibular Joint Articular Disc Disorder; Limited Opening of Mandible; Migraine; Myofascial Pain Dionisio Rivero, PT: [address], [address] [place] [phone], Ph. 07/17/2020 Arthralgia of Temporomandibular Joint; B ilateral Temporomandibular Joint Articular Disc Disorder; Limited Opening of Mandible; Migraine; Myofascial Pain Dionisio Rivero, PT: [address], [address] [place] [phone], Ph. Social History Tobacco Smoking Status Former Smoker Vaccine List Vaccine Type influenza, seasonal, injectable 01/04/2020 Plan of Care Reminders Provider Appointments None recorded. ? ? Lab None recorded. ? ? Referral None recorded. ? ? Procedures None recorded. ? ? Surgeries None recorded. ? ? Imaging None recorded. ? ? Vitals 08/08/2020 10:30AM SPLINT INSERT Height Blood Pressure 5 ft 4 in 114/79 mm[Hg] 06/29/2020 01:30PM NEW PATIENT 60 Height Weight BMI Blood Pressure 5 ft 4 in 200 lbs 34.3 kg/m2 128/82 mm[Hg]
[2022-01-08 14:37] VITALS: BP 119/79; PULSE 96; RESP 16; O2SAT 97
[2022-01-08 15:18] VITALS: BP 128/78; PULSE 92; RESP 16; O2SAT 100
[2022-01-08 15:34] VITALS: BP 128/78; PULSE 92; RESP 16; O2SAT 100
== END 2022-01-08 15:44 | disposition home or self-care (01) ==
PROVIDERS: Visit Provider Family Medicine
DX: M72.2 Plantar fascial fibromatosis (principal)
CPT/HCPCS: 28060; 76942; J3490